=== PATIENT | female | born 1985 | race Caucasian/White ===

== ENCOUNTER 2018-07-23 13:22 | Day surgery (SDC) | payer BC ==
--- NOTE | 2018-07-23 18:29 | ER ---
DATE OF SERVICE: 07/23/2018 PRIMARY FIBERGLASS BONDING MACHINE TENDER: Lynda Cheikh, certified nurse building code administrator. CHIEF COMPLAINT: Elevated blood pressures. HISTORY OF PRESENT ILLNESS: The patient is a 33-year-old, G4, P3 female with an intrauterine at 34 weeks and 5 days, who presents to Labor and Delivery today after experiencing some elevated blood pressures at home. The patient reports that she had some elevated pressures in the clinic last week and was asked to monitor them. She reports two blood pressures in the mild range today 140s up to 148 systolic and 90s diastolic. The patient reports her pressures tend to go back to normal after she wakes up, but that her initial elevation seems to be when she gets up from a nap. The patient denies headache, chest pain, shortness of breath, nausea, or vomiting. She did report a little bit of a right upper quadrant tenderness, but has not been persistent and is not present at the time of the evaluation. The patient denies any new rashes, hip problems, knee problems, muscle weakness. She has been having some lower back tenderness and midback tenderness due to scoliosis. The patient denies any vaginal bleeding or leakage of fluid or urinary urgency. PAST MEDICAL HISTORY: Significant for scoliosis. PAST SURGICAL HISTORY: Noncontributory. ALLERGIES: NO KNOWN DRUG ALLERGIES. MEDICATIONS: vitamins. LABORATORY DATA: OB labs are unavailable at the time of dictation. Of note, the patient did have evaluation approximately 2 to 3 weeks ago with normal blood work with a CMP and CBC. REVIEW OF SYSTEMS: Per HPI. PHYSICAL EXAMINATION: VITAL SIGNS: The patient has been present for approximately 2-1/2 going on 3 hours for blood pressure evaluation, she is noted to have blood pressures remaining in the normal range, 124 to 138 over 80s diastolic, heart rate in the 80s and 70s, respiratory rate 18. GENERAL: She appears to be in no acute distress. She is alert, oriented, cooperative, and pleasant to interact with. HEAD: Normocephalic, atraumatic. LUNGS: Clear to auscultation bilaterally. HEART: Regular rate and rhythm. ABDOMEN: Gravid, soft, nontender. She has negative Portillo sign. Negative suprapubic tenderness. She did have some mid and lower back tenderness to palpation. It was mild. EXTREMITIES: Nontender with minimal edema. : Deferred. heart tracing showed a baseline in the 140s with moderate long-term variability, positive 15 x 15 accelerations, no decelerations, no contractions on the monitor. ASSESSMENT AND PLAN: The patient is a 33-year-old female with an intrauterine at 34 weeks and 5 days, who presented with concerns of some mild range blood pressures at home. We have not been able to reproduce them here, though she is running in the mid upper 130s/80s consistently. The patient has been given reassurance and has been given instructions to call her primary OB, Ms. Lynda Salamanca, tomorrow to make an appointment to be seen later in the week. She has been given instructions by Ms. Howell to monitor her blood pressures at home, which we have asked her to continue to do. The patient has a reactive NST and a category 1 tracing. Job ID: [id number]
== END 2018-07-23 17:08 | disposition home or self-care (01) ==
LOC: L&D/OP 13:22
PROVIDERS: ATTEND Advanced Practice Midwife
DX: O99.89 Other specified diseases and conditions complicating pregnancy, childbirth and the puerperium (principal); R03.0 Elevated blood-pressure reading, without diagnosis of hypertension; R10.11 Right upper quadrant pain; M41.9 Scoliosis, unspecified; Z79.899 Other long term (current) drug therapy; Z3A.34 34 weeks gestation of pregnancy
CPT/HCPCS: 99282

== ENCOUNTER 2018-08-09 05:30 | Inpatient (IN) | payer BC ==
[2018-08-09] MEDS ORDERED: Methylergonovine 0.2 MG/ML VIAL IM PRN (16:43)
[2018-08-09] MEDS ORDERED: Promethazine HCl 25 MG/ML VIAL IM PRN (16:43)
[2018-08-09] MEDS ORDERED: HYDROcodone/Acetaminophen 5/325 mg Tablet PO PRN ×2 (16:43)
[2018-08-09] MEDS ORDERED: Ondansetron PF 4 MG/2 ML Vial IVP PRN (16:43)
[2018-08-09] MEDS ORDERED: Lidocaine 1% (PF) 30 ML VIAL SC PRN (16:43)
[2018-08-09] MEDS ORDERED: Misoprostol 200 MCG TAB PR PRN (16:43)
[2018-08-09] MEDS ORDERED: Lactated Ringer's 1,000 ML IV PRN (16:43)
[2018-08-09] MEDS ORDERED: NS / Oxytocin 40 units/1000ml 1,000 ML IV PRN (16:43)
[2018-08-09] MEDS ORDERED: Ibuprofen 800 MG TAB PO PRN (16:43)
[2018-08-09 17:01] LABS: Mean Corpuscular HGB CONC 34.5 g/dL (32.0-36.0); Mean Corpuscular Hemoglobin 33.2 pg (27.0-31.0); Mean Platelet Volume 6.6 fL (7.4-10.4); Platelet Count 215 thou/uL (130-400); RBC Distribution Width 12.6 % (11.5-14.5); Red Blood Cell (RBC) Count 4.21 mill/uL (4.20-5.40)
[2018-08-09 17:48] LABS: Syphilis Antibody Nonreactive (Nonreactive); Syphilis Antibody Index 0.04 S/CO (<1.00 Non-Reactive)
[2018-08-09 17:50] LABS: Hep B Surf Ag Non-Reactive S/CO (NonReactive)
--- NOTE | 2018-08-09 17:55 | PDOC.LDHP ---
Labor and Delivery H&P Chief complaint: scheduled induction (Medically indicated IOL for GHTN.), other HPI: gissell is doing well. She was having contractions last night, which stopped at 0000. Then she had some more this morning with some spotting. The dilapan which were placed in the office. Current gestational age (weeks): 37 Dating criteria: last menstrual period Grav: 4 Para: 3 Current complications: hypertension Abnormal US findings: No Current medications: pre-toya vitamins Previous surgical history: other (Oral surgery.) Allergies/Adverse Reactions: Allergies Allergy/AdvReac Type Severity Reaction Status Date / Time No Known Allergies Allergy Verified 08/09/18 16:26 Social history: none - Physical Exam Vital signs reviewed and normal: yes General: NAD Heart: RRR Lungs: nonlabored breathing Abdomen: gravid FHT: category 1 - Vaginal Exam cm dilated: 4 (no presenting part) Effacement: 50% Station: -3 - OB Labs Antibody Screen: negative HIV: negative RPR: negative HEPSAg: negative GBS: negative Urine drug screen: negative Rubella: immune - Assessment L&D Assessment: medically indicated induction (for GHTN) Transverse lie. Verified by US. - Plan Plan: admit to L&D -: Removal of Dilapan Consulted with Dr. Sanchez regarding Transverse Lie and ECV. patient was consulted on ECV, risks including SROM, bradycardia, and emergency section with general anesthesia. patient agree to ECV then AROM.
[2018-08-09 18:00] LABS: ALT (SGPT) 10 U/L (8-55); AST (SGOT) 11 U/L (5-34); Albumin 2.7 g/dL (3.5-5.0); Alkaline Phosphatase 130 U/L (40-150); Anion Gap 11 mmol/L (10-20); BUN (Urea Nitrogen) 4 mg/dL (7.0-18.7); Bilirubin, Total 0.7 mg/dL (0.2-1.2); Calc. Creatinine Clearance 0 mL/min (70-130); Calcium 8.5 mg/dL (7.8-10.44); Carbon Dioxide 22 mmol/L (22-29); Chloride 109 mmol/L (98-107); Estimated GFR-MDRD Greater than 90; Globulin 2.8 g/dL (2.4-3.5); Glucose 80 mg/dL (70-105); Potassium 3.9 mmol/L (3.5-5.1); Protein, Total 5.5 g/dL (6.0-8.3); Sodium 138 mmol/L (136-145)
[2018-08-09] MEDS ORDERED: Mineral Oil ENEMA PR SCH (18:15)
--- NOTE | 2018-08-09 22:53 | PDOC.EVN ---
Event Note - Event Note Event Note: - Event Note Event Note: ECV note: during cervical exam, no presenting part was palpated. The fetus was verified transverse by US. ECV was offered to patient. Risk of ECV discussed including ROM, bleeding, bradycardia, and emergency section. I consulted with Dr. Sanchez and he agrees with the plan to perform the ECV and is at the bedside during procedure. After labs were resulted, another bedside ultrasound was performed. The head was located on the pateint left, spine in fundus, and feet as the presenting part. The placenta is located on the anterior right side. Mineral oil was applied to the abdomen. The head was rotated counterclockwise under ultrasound guidance. The head was noted to be in the vertex position by US. Abdominal bracing with towels was used to stabilize fetus in vertex position. FHTs after ECV were 130s.
[2018-08-10 04:03] VITALS: BMI 38.7
[2018-08-10] MEDS ORDERED: Oxytocin 10 UNITS/ML VIAL ONE ×2 (04:42)
--- NOTE | 2018-08-10 06:36 | PDOC.OPDEL ---
OB Operative/Delivery Note Delivery Dr/Surgeon: Luis Angel Salamanca Pre-Delivery Diagnosis: medically indicated induction Procedure/Post Delivery Dx: spontaneous vaginal delivery Weeks gestation: 37 Anesthesia: none - Findings A Sex: male Weight: 5 lb 12 oz - 1 min: 8 - 5 min: 9 - Additional Findings/Plan Placenta delivered: spontaneous Repaired Obstetrical Laceration: none Estimated blood loss: 100mL Post delivery plan: routine recovery
[2018-08-10] MEDS ORDERED: Milk Of Magnesia 30 ML UDCUP PO PRN (07:44)
[2018-08-10] MEDS ORDERED: Misoprostol 200 MCG TAB VAG PRN (07:44)
[2018-08-10] MEDS ORDERED: Bisacodyl 10 MG SUPP PR PRN (07:44)
[2018-08-10] MEDS ORDERED: Benzocaine-Menthol 82.5 ML CAN TOP PRN (07:44)
[2018-08-10] MEDS ORDERED: Methylergonovine 0.2 MG/ML VIAL IM PRN (07:44)
[2018-08-10] MEDS ORDERED: HYDROcodone/Acetaminophen 5/325 mg Tablet PO PRN ×2 (07:44)
[2018-08-10] MEDS ORDERED: Adacel (T-DAP) 0.5 ML SYRINGE IM ONE (07:44)
[2018-08-10] MEDS ORDERED: NS / Oxytocin 40 units/1000ml 1,000 ML IV SCH (07:44)
[2018-08-10] MEDS: Ferrous Sulfate 325 MG TAB PO SCH ×2 (09:33→17:35)
[2018-08-10] MEDS: Docusate Calcium (SURFAK) 240 MG CAP PO SCH ×2 (09:34→21:34)
[2018-08-10] MEDS: Ibuprofen 800 MG TAB PO SCH ×2 (15:56→21:37)
[2018-08-11] MEDS: Ibuprofen 800 MG TAB PO SCH (05:28)
[2018-08-11] MEDS: Ferrous Sulfate 325 MG TAB PO SCH (08:54)
[2018-08-11 09:03] VITALS: BP 122/76; TEMP 98.4
--- NOTE | 2018-08-11 09:40 | PDOC.PP ---
Post Progress Note Post Day #: 1 Subjective: Doing well. No concerns. Baby is eating well. She is having minimal bleeding. PO intake tolerated: yes Flatus: yes Ambulation: yes Vital Signs (12 hours) Temp Pulse Resp BP Pulse Ox 08/11/18 07:00 98.4 F 91 20 122/76 97 08/11/18 05:29 72 18 129/76 08/11/18 00:11 97.8 F 83 18 121/89 Weight Weight 226 lb - Physical Examination General: NAD Cardiovascular: no m/r/g, RRR Respiratory: clear to auscultation bilaterally Abdominal: lochia (minimal) Extremities: negative homans (B) Neurological: no gross focal deficits Psychiatric: A&Ox3, normal affect Result Diagrams: 08/09/18 16:51 08/09/18 16:51 Additional Labs: Post Labs Blood Type B POSITIVE 08/09/18 17:33 Hep Bs Antigen Non-Reactive S/CO (NonReactive) 08/09/18 16:51 (1) (spontaneous vaginal delivery) Code(s): O80 - ENCOUNTER FOR FULL-TERM UNCOMPLICATED DELIVERY Status: Acute (2) Gestational hypertension Code(s): O13.9 - GESTATIONAL HTN W/O SIGNIFICANT PROTEINURIA, UNSP TRIMESTER Status: Acute (3) Successful external cephalic version Code(s): DKG6106 - Status: Acute - Assessment/Plan A: s/p IOL for GHTN. ECV successful P: discharge home 6 week f/up
[2018-08-11] MEDS: Docusate Calcium (SURFAK) 240 MG CAP PO SCH (09:45)
== END 2018-08-11 11:00 | disposition home or self-care (01) | DRG 807 ==
LOC: L&D 15:46 → 3SE 08-10 09:56
PROVIDERS: ADMIT Student in an Organized Health Care Education/Training Program; ATTEND Student in an Organized Health Care Education/Training Program
PROC: 10E0XZZ Delivery of Products of Conception, External Approach (ICD-10-PCS; principal; 2018-08-11)
PROC: 3E033VJ Introduction of Other Hormone into Peripheral Vein, Percutaneous Approach (ICD-10-PCS; 2018-08-11)
PROC: 10S0XZZ Reposition Products of Conception, External Approach (ICD-10-PCS; 2018-08-11)
DX: O13.4 Gestational [pregnancy-induced] hypertension without significant proteinuria, complicating childbirth (principal); Z37.0 Single live birth; Z3A.37 37 weeks gestation of pregnancy; O32.2XX0 Maternal care for transverse and oblique lie, not applicable or unspecified
CPT/HCPCS: 36415; 59412; 76815; 80053; 85027; 86780; 86850; 86900; 86901; 87340; 90715; J2001; J2590